=== PATIENT | female | born 1955 | race Two or more races ===

== ENCOUNTER 2024-10-12 10:25 | Emergency (ER) | payer MEDICARE, MEDICAID, SELFPAY ==
[2024-10-12 11:07] VITALS: BP 158/92; PULSE 87; RESP 16; TEMP 36.9; O2SAT 98; BMI 38.0
--- NOTE | 2024-10-12 11:10 | XR_ITS ---
Examination: CT abdomen and pelvis without contrast. Coronal 3-D reconstructions. Sagittal 2-D reconstructions. Date and time of exam:October 12, 2024 11:18 AM Comparison April 02, 2024 INDICATIONS: Onset left-sided flank pain left lower abdominal pain today CTDI: vol (mGy): 13.3 DLP: (mGycm): 753 Technique: Axial images of the abdomen have been obtained, 3 mm slice thickness Intravenous contrast material has not been administered. Low dose protocols were performed. One or more of the following dose reduction techniques were used; automated exposure control, adjustment of the mA and/or KV according to patient size, use of iterative reconstruction technique. Findings: Small pericardial effusion No focal liver or splenic lesions Absent gallbladder No pancreatic or adrenal mass No renal or ureteral calculi, no hydronephrosis No bowel obstruction No pericecal inflammatory change Colonic diverticulosis, no diverticulitis Intact urinary bladder Atrophic uterus Advanced degenerative disc disease L5-S1 IMPRESSION: No renal or ureteral calculi, no hydronephrosis No CT findings of appendicitis bowel obstruction or diverticulitis
--- NOTE | 2024-10-12 11:10 | PD.EDRME ---
Rapid Medical Screening Exam RME Arrival date/time: 10/12/24 10:25 69-year-old female presents emergency department today complains of left lower abdominal pain Chief Complaint: Abdominal Pain Time Seen by Provider: 10/12/24 10:59
[2024-10-12 11:46] LABS: Basophils % (Auto) 1 % (0-2.5); Eosinophils # (Auto) 0.1 Thou/mm3 (0.0-0.5); Eosinophils % (Auto) 2 % (0-10); Hematocrit 39.3 % (36.0-46.0); Hemoglobin 13.1 g/dL (12.0-16.0); Immature Granulocytes % (Auto) 1 % (0-0); Immature Granulocytes Auto 0.04 Thou/mm3 (0.00-0.00); Lymphocytes # (Auto) 1.1 Thou/mm3 (1.0-4.8); Lymphocytes % (Auto) 13 % (10-50); Mean Corpuscular HGB Conc 33.3 g/dl (31.0-37.0); Mean Corpuscular Hemoglobin 28.6 pg (25.0-35.0); Mean Corpuscular Volume 86 fL (80-100); Monocytes # (Auto) 0.5 Thou/mm3 (0.0-0.8); Monocytes % (Auto) 6 % (0-12); Neutrophils # (Auto) 6.5 Thou/mm3 (1.8-7.7); Neutrophils % (Auto) 78 % (37-80); Nucleated Red Blood Cell % 0 /100 WBC (0); Platelet Count 235 Thou/mm3 (140-440); RDW Standard Deviation 39.9 fL (36.4-46.3); Red Blood Count 4.58 Miln/mm3 (4.00-5.20); White Blood Count 8.3 Thou/mm3 (3.6-11.0)
[2024-10-12 12:03] LABS: Alanine Aminotransferase 14 U/L (10-49); Albumin, Serum 4.6 gm/dL (3.4-4.8); Albumin/Globulin Ratio 1.8 (1.2-2.2); Alkaline Phosphatase 118 U/L (46-116); Anion Gap 8 (7-16); Aspartate Amino Transferase 21 U/L (0-34); BUN/Creatinine Ratio 16 Ratio (12-20); Bilirubin,Total 0.4 mg/dL (0.3-1.2); Blood Urea Nitrogen 16 mg/dL (9-23); Calcium 9.3 mg/dL (8.3-10.6); Calcium (Corrected) 9.3 mg/dL (8.5-10.1); Carbon Dioxide 26.8 mMol/L (20.0-31.0); Chloride 99 mMol/L (98-107); Globulin 2.5 gm/dL (2.3-3.5); Glucose 136 mg/dL (74-106); Lipase 49 U/L (12-53); Osmolality,Calculated 271 (275-295); Potassium 3.8 mMol/L (3.4-5.1); Sodium 134 mMol/L (136-145); Total Protein 7.1 gm/dL (5.7-8.2); eGFR > 60 See Note
[2024-10-12 13:10] LABS: Collection Type, Urine Clean Catch
[2024-10-12 13:27] LABS: Bilirubin,Urine Negative (Negative); Blood,Urine Negative (Negative); Clarity,Urine Clear (Clear/Hazy); Color,Urine Yellow (Lt Yel-Yel); Culture Indicated,Urine Not Indicated; Glucose, Urine Negative (Negative); Ketones,Urine Negative (Negative); Leukocyte Esterase,Urine Positive (Negative); Nitrite,Urine Negative (Negative); PH,Urine 6.5 (5.0-7.0); Protein,Urine 2+ (Neg - Trace); RBC,Urine 6 /hpf (0-3); Specific Gravity,Urine 1.023 (1.001-1.035); Squamous Epithelial Cell,Urine 1 /hpf (0-5); Urobilinogen,Urine Negative mg/dL (0.0-1.0); WBC,Urine 6 /hpf (0-5)
--- NOTE | 2024-10-12 14:55 | PD.EDABDPN ---
ED Abdominal Pain RME/HPI General Chief Complaint: Abdominal Pain Stated complaint: stomach pain , htn, feels heart racing Time seen by provider: 10/12/24 10:59 Arrival date/time: 10/12/24 10:25 RME / HPI RME / HPI narrative: 69-year-old female presents emergency department today complains of left lower abdominal pain. Onset of symptoms for the last few days, described as dull ache, severity moderate. Patient also complaining of hypertension on feels like heart is racing. Denies any fever denies any other complaints no medications taken prior to arrival. Patient told me that she ran out of her Vicodin a week ago. She had incoming appointment with her PCP to get her Vicodin again. Related Data Home Medications ?Medication ?Instructions ?Recorded ?Confirmed lisinopril 40 mg tablet 40 mg PO BID HBP ##0 06/19/13 01/15/21 clonidine HCl 0.1 mg tablet 0.4 mg PO Q6H PRN hbp 03/23/18 01/15/21 alprazolam 0.25 mg tablet 0.25 mg PO TID PRN Anxiety 07/23/18 01/15/21 nitroglycerin 0.4 mg sublingual 0.4 mg buccal PRN PRN Chest Pain 11/09/18 01/15/21 tablet pantoprazole 40 mg tablet,delayed 40 mg PO QDAY 11/09/18 01/15/21 release (Protonix) carvedilol 12.5 mg tablet 12.5 mg PO BID 10/19/19 01/15/21 albuterol sulfate 90 mcg/actuation 2 puff inhalation PRN PRN 12/26/20 01/15/21 aerosol inhaler (Ventolin HFA) Shortness Of Breath Previous Rx's ?Medication ?Instructions ?Recorded dicyclomine 20 mg tablet 20 mg PO QID PRN abdominal pain 01/26/21 #30 tabs naproxen 500 mg tablet 500 mg PO Q12H PRN Abdominal Pain 03/07/21 #20 tabs sucralfate 100 mg/mL oral 10 ml PO QID #200 mL 07/14/21 suspension (Carafate) meloxicam 7.5 mg tablet 7.5 mg PO QDAY #10 tabs 06/08/23 naproxen 500 mg tablet 500 mg PO BID #30 tabs 12/01/23 pantoprazole 40 mg tablet,delayed 40 mg PO QDAY #14 tabs 12/30/23 release (Protonix) Allergies Allergy/AdvReac Type Severity Reaction Status Date / Time black pepper Allergy Severe Swelling Verified 10/12/24 10:26 of Lip/Tongue/Throat broccoli Allergy Severe Anxiety Verified 10/12/24 10:26 ciprofloxacin Allergy Severe KIDNEY Verified 10/12/24 10:26 FAILURE garlic Allergy Severe TROUBLE Verified 10/12/24 10:26 BREATHING, MOUTH DRY ketorolac (From Toradol) Allergy Severe Difficulty Verified 10/12/24 10:26 Breathing melon Allergy Severe Anxiety Verified 10/12/24 10:26 morphine Allergy Severe Anxiety Verified 10/12/24 10:26 Penicillins Allergy Severe DIFFICULTY Verified 10/12/24 10:26 BREATHING Quinolones Allergy Severe KIDNEY Verified 10/12/24 10:26 FAILURE Review of Systems Review of Systems Narrative Review of Systems: Review of system reviewed and within normal limits except mentioned in HPI ED Exam Narrative Physical exam: VITAL SIGNS: Reviewed. GENERAL APPEARANCE: Alert and interactive, follows commands, no acute distress, HEAD AND FACE: Non-traumatic. ENT: PERRL, pink conjunctivitis, eyelid no trauma, Mucous membrane moist. NECK: Supple, nontender, no nuchal rigidity. CHEST: No tenderness, no crepitus, no paradoxical movement, no retractions. LUNGS: Clear, well ventilated, symmetric, no rales, no wheezing, no ronchi, no stridor, good breath sounds bilaterally. HEART: Regular rate, regular rhythm, no murmur, no gallops. ABDOMEN: Soft, positive bowel sounds, nondistended, no guarding, left lower quadrant tenderness, no rebound, no masses, RECTAL: Deferred. GENITAL: Deferred. NEUROLOGICAL: Gross motor function intact sensory function intact, Appropriate for age. MUSCULOSKELETAL: low back nontender, full range of motion. EXTREMITIES: Nontender, full range of motion. SKIN: Color pink, dry, no rash, no lacerations, no abrasions, no contusions. LYMPHATICS: Deferred. Course Quality Measures none Orders Category Date Time Status CT abdomen pelvis wo con Stat Exams 10/12/24 11:10 Completed CBC Stat Lab 10/12/24 11:17 Completed Comprehensive Metabolic Panel Stat Lab 10/12/24 11:17 Completed Lipase Stat Lab 10/12/24 11:17 Completed UA, C/S IF [Urinalysis, C/S if Indicated] Stat Lab 10/12/24 12:15 Completed HYDROcodone/APAP [Bronson ] Med 10/12/24 14:54 Once 1 tab PO X1 ONE Vital Signs Vital signs: Vital Signs Temperature 98.4 F 10/12/24 11:07 Pulse Rate 87 10/12/24 11:07 Respiratory Rate 16 10/12/24 11:07 Blood Pressure 158/92 H 10/12/24 11:07 Pulse Oximetry (%) 98 10/12/24 11:07 Oxygen Delivery Method Room Air 10/12/24 11:07 Abdominal Pain MDM MDM Narrative MDM Narrative:: 69-year-old female presents emergency department today complains of left lower abdominal pain. Onset of symptoms for the last few days, described as dull ache, severity moderate. Patient also complaining of hypertension on feels like heart is racing. Denies any fever denies any other complaints no medications taken prior to arrival. Laboratory workup all came back unremarkable. CT scan of the abdomen and pelvis also came back normal. Results discussed with the patient. Patient is awaiting to be seen by GI specialist and discharge centers. Patient appears nontoxic and hemodynamically stable. Patient discharged home and instructed to follow-up with primary care provider in 24 to 48 hours. Instructed to return to the emergency department immediately if worsening of symptoms Patient data External records reviewed:: None Clinical information provided by:: patient Social determinants that could affect healthcare access:: none Patient has the following chronic illnesses:: History of Crohn's disease How is presenting disease/condition affected by chronic disease/condition?: exacerbated by Evaluation data The following diagnostics were reviewed and interpreted by me:: lab results and radiology exam(s) Lab and/or radiology exams considered but not ordered:: None Interpretation Summary: Laboratory workup all came back unremarkable CT scan of the abdomen and pelvis came back normal. Medications / Prescriptions Medications or Prescriptions considered but not ordered:: None none Medication administrations:: Bronson Consultations Consultation(s) initiated? (list below): No Diagnosis Differential diagnosis abdominal pain: abdominal pain, constipation and diverticulitis Most likely diagnosis given after review of the tests above:: Abdominal pain Admission Indicated Admission indicated?: not indicated Explain why admission is indicated or not indicated:: Stable Admission Request Was there a request for admission?: No Disposition Plan Disposition Plan: Discharge Discharge Attestation Discharge Attestation: The patient was given an opportunity to ask questions and understood the discharge instructions. Discharge instructions specifically effects, indications for sooner follow up or return to the emergency department, and the expected course of current diagnosis. Patient condition: Stable Discharge Plan Plan Patient Disposition: HOME (Self Care) Disposition Comment: Stable Prescriptions/Referrals Prescriptions/Med Rec: No Action lisinopril 40 MG tablet 40 mg PO BID Qty: 0 alprazolam 0.25 mg Tablet 0.25 mg PO TID PRN (Reason: Anxiety) dicyclomine 20 mg tablet 20 mg PO QID PRN (Reason: abdominal pain) Qty: 30 0RF naproxen 500 mg tablet 500 mg PO Q12H PRN (Reason: Abdominal Pain) Qty: 20 0RF Rx Instructions: administer with food or milk clonidine HCl 0.1 mg Tablet 0.4 mg PO Q6H PRN (Reason: hbp) pantoprazole [Protonix] 40 mg Tablet,Delayed Release (Dr/Ec) 40 mg PO QDAY nitroglycerin 0.4 mg Tablet, Sublingual 0.4 mg buccal PRN PRN (Reason: Chest Pain) carvedilol 12.5 mg tablet 12.5 mg PO BID Patient Comments: TAKE 1 TABLET BY MOUTH TWICE A DAY BLOOD PRESSURE albuterol sulfate [Ventolin HFA] 90 mcg/actuation HFA aerosol inhaler 2 puff INHALATION PRN PRN (Reason: Shortness Of Breath) sucralfate [Carafate] 100 mg/mL suspension 10 ml PO QID Qty: 200 0RF Rx Instructions: swish in mouth and swallow; use after food/drink pantoprazole [Protonix] 40 mg tablet,delayed release (DR/EC) 40 mg PO QDAY Qty: 14 0RF meloxicam 7.5 mg tablet 7.5 mg PO QDAY Qty: 10 0RF naproxen 500 mg tablet 500 mg PO BID Qty: 30 0RF Referrals: Colton Sheehan MD [Primary Care Provider] - In 1 week Problem List Clinical Impression: Abdominal pain Patient/Caregiver Discharge Instructions Discharge Activity: activity as tolerated Education Materials: Abdominal Pain Additional Instructions: Thank you for the opportunity for serving you today. You are stable for discharged . You are advised to: Follow-up with your PCP in 1 to 2 days Return to ED for worsening of symptoms Increase oral fluids Take [id number] Tylenol Motrin as needed for pain Print Language: Macedonian Stand Alone Forms: Roseann Award Info., Patient Portal Info Letter PA/JUSTIN Supervising Physician PA/JUSTIN Supervising Physician: MD Anahi
[2024-10-12] MEDS: HYDROcodone/APAP 10/325 TAB PO (15:14)
== END 2024-10-12 15:46 | disposition home or self-care (01) ==
PROVIDERS: Nurse Practitioner Primary Care; Emergency Provider Emergency Medicine; PCP Family Medicine
DX: R10.32 Left lower quadrant pain (principal)
CPT/HCPCS: 36415; 74176; 80053; 81001; 83690; 85025; 99284; A9270

== ENCOUNTER → 2025-02-07 | Outpatient (CLI) | payer MEDICARE, MEDICAID, SELFPAY ==
[2025-02-07 12:11] LABS: Alanine Aminotransferase 14 U/L (10-49); Albumin, Serum 4.2 gm/dL (3.4-4.8); Alkaline Phosphatase 109 U/L (46-116); Anion Gap 11 (7-16); Aspartate Amino Transferase 21 U/L (0-34); BUN/Creatinine Ratio 21 Ratio (12-20); Bilirubin,Total 0.4 mg/dL (0.3-1.2); Blood Urea Nitrogen 19 mg/dL (9-23); Calcium 8.7 mg/dL (8.3-10.6); Calcium (Corrected) 8.7 mg/dL (8.5-10.1); Carbon Dioxide 27.3 mMol/L (20.0-31.0); Chloride 104 mMol/L (98-107); Creatinine (Component) 0.9 mg/dL (0.6-1.3); Globulin 2.1 gm/dL (2.3-3.5); Glucose 121 mg/dL (74-106); Osmolality,Calculated 286 (275-295); Potassium 3.9 mMol/L (3.4-5.1); Sodium 142 mMol/L (136-145); Total Protein 6.3 gm/dL (5.7-8.2); eGFR > 60 See Note
== END | disposition home or self-care (01) ==
LOC: COPL 10:01
PROVIDERS: PCP Family Medicine; Referring Provider Nurse Practitioner Family; Visit Provider Nurse Practitioner Family
DX: E87.6 Hypokalemia (principal)
CPT/HCPCS: 36415; 80053